=== PATIENT | male | born 1980 | race American Indian/Alaskan Native ===

== ENCOUNTER 2018-05-04 01:52 | Emergency (ER) | payer OTHER ==
--- NOTE | 2018-05-04 03:19 | ED PDOC ---
HPI: Allergic Reaction Chief Complaint (Provider): allergic reaction History Per: Patient History/Exam Limitations: no limitations Onset/Duration Of Symptoms: Hrs Current Symptoms Are (Timing): Better Possible Cause: Unknown Associated Symptoms: Swelling Additional Complaint(s): 38 y/o male presents to ED for evaluation of possible allergic reaction x 1 day. Patient states he noticed his tongue was swollen and had difficulty swallowing earlier tonight; was evaluated at [facility] and prescribed Benadryl, Pepcid, and Prednisone as well as doses given in ED with improvement of symptoms. Patient states he feels like once the medications wore off the swelling was coming back. Denies fever, headache, dizziness, difficulty speaking/swallowing, rash, cough, chest pain, shortness of breath, palpitations. Patient reports feeling better now. Patient states he had a Tetanus shot early April, and took one Cipro pill 10 days after that; otherwise denies known allergen <Dorcas Bennett - Last Filed: 05/04/18 03:21> <Constantine Adamson - Last Filed: 05/05/18 03:49> Time Seen by Provider: 05/04/18 02:34 Chief Complaint (Nursing): ENT Problem Supervising Attending Note - Attestation: I have reviewed all pertinent clinical information: Yes <Constantine Adamson - Last Filed: 05/05/18 03:49> Past Medical History Reviewed: Historical Data, Nursing Documentation, Vital Signs Vital Signs: Last Vital Signs Temp 98.6 F 05/04/18 02:00 Pulse 55 L 05/04/18 02:00 Resp 18 05/04/18 02:00 BP 106/69 05/04/18 02:00 Pulse Ox 99 05/04/18 02:00 - Medical History PMH: No Chronic Diseases - Family History Family History: States: No Known Family Hx <Dorcas Bennett - Last Filed: 05/04/18 03:21> Vital Signs: Last Vital Signs Temp 97.9 F 05/04/18 03:40 Pulse 50 L 05/04/18 03:40 Resp 14 05/04/18 03:40 BP 111/72 05/04/18 03:40 Pulse Ox 100 05/04/18 03:40 <Constantine Adamson - Last Filed: 05/05/18 03:49> - Allergies Allergies/Adverse Reactions: Allergies Allergy/AdvReac Type Severity Reaction Status Date / Time Penicillins Allergy RASH Verified 05/04/18 03:16 Review of Systems ROS Statement: Except As Marked, All Systems Reviewed And Found Negative ENT: Positive for: Other (tongue swelling) <Dorcas Bennett - Last Filed: 05/04/18 03:21> Physical Exam - Reviewed Nursing Documentation Reviewed: Yes Vital Signs Reviewed: Yes - Physical Exam Appears: Positive for: Well, Non-toxic, No Acute Distress (sleeping) Head Exam: Positive for: ATRAUMATIC, NORMAL INSPECTION, NORMOCEPHALIC Skin: Positive for: Normal Color Eye Exam: Positive for: Normal appearance ENT: Positive for: Normal ENT Inspection, Other (airway patent; uvula midline. No tongue swelling appreciated). Negative for: Pharyngeal Erythema, Tonsillar Exudate, Tonsillar Swelling Cardiovascular/Chest: Positive for: Regular Rate, Rhythm Respiratory: Positive for: Normal Breath Sounds Gastrointestinal/Abdominal: Positive for: Normal Exam Back: Positive for: Normal Inspection Extremity: Positive for: Normal ROM Neurologic/Psych: Positive for: Alert, Motor/Sensory Deficits (x3) <Dorcas Bennett - Last Filed: 05/04/18 03:21> - ECG O2 Sat by Pulse Oximetry: 99 - Progress ED Course And Treament: Benadryl PO Patient educated on findings, advised to continue medications previously prescribed Follow up PMD 2-3 days Return precautions given <Dorcas Bennett - Last Filed: 05/04/18 03:21> Disposition - Patient ED Disposition Is Patient to be Admitted: No Counseled Patient/Family Regarding: Diagnosis, Need For Followup - Disposition Disposition: Routine/Home Disposition Time: 03:20 <Dorcas Bennett - Last Filed: 05/04/18 03:21> <Constantine Adamson - Last Filed: 05/05/18 03:49> - Clinical Impression Clinical Impression: Tongue swelling - Disposition Condition: GOOD Instructions: Angioedema Forms: [facility] ([place])
[2018-05-04 03:48] VITALS: BP 111/72; PULSE 50; RESP 14; TEMP 97.9; O2SAT 100
== END 2018-05-04 03:49 | disposition home or self-care (01) ==
LOC: H.ER 01:52
DX: R22.0 Localized swelling, mass and lump, head (principal); R13.10 Dysphagia, unspecified

== ENCOUNTER 2018-07-20 03:42 | Emergency (ER) | payer OTHER ==
[2018-07-20] MEDS ORDERED: Sodium Chloride 0.9% 1,000 ML IV STA ×2 (04:05→05:57)
[2018-07-20 04:26] LABS: BASO % 0.7 % (0.0-2.0); EOS # 0.1 K/uL (0.0-0.7); EOS % 1.3 % (0.0-4.0); LYMPH # 2.5 K/uL (1.0-4.3); LYMPH % 48.9 % (20.0-40.0); MEAN CELL VOLUME 87.5 fl (80.0-94.0); MEAN CORPUSCULAR HEMOGLOBIN 29.7 pg (27.0-31.0); MEAN CORPUSCULAR HGB CONC 33.9 g/dL (33.0-37.0); MEAN PLATELET VOLUME 7.1 fl (7.2-11.7); MONO # 0.4 K/uL (0.0-0.8); MONO % 8.9 % (0.0-10.0); NEUT % 40.2 % (50.0-75.0); NRBC % 0.2 % (0.0-0.0); RBC 4.73 Mil/uL (4.40-5.90); RED CELL DISTRIBUTION WIDTH 13.5 % (11.5-14.5)
[2018-07-20 04:46] LABS: BLOOD UREA NITROGEN 21 mg/dl (9-20); CALCIUM 9.2 mg/dL (8.4-10.2); GFR NON-AFRICAN AMERICAN > 60
--- NOTE | 2018-07-20 05:09 | ED PDOC ---
HPI: General Adult Time Seen by Provider: 07/20/18 03:57 Chief Complaint (Nursing): Abdominal Pain History Per: Patient History/Exam Limitations: no limitations Onset/Duration Of Symptoms: Hrs Have you had recent travel within the past 21 days to any of the following countries: [place], [place], [place] or [place]?: No Additional Complaint(s): No PMHx presenting with dizziness and lightheadedness. States that he got up at 230 to use the bathroom and felt like he as going to pass out, states that while walking he felt like he was falling to the left. States that he has had a queasy sensation in his stomach for the past 5 days, has not been sleeping well, and had one loose bowel movement today. No vomiting but has nausea. No fevers, no chest pain, shortness of breath, or other symptoms. PMD: Can't remember name Past Medical History Reviewed: Historical Data, Nursing Documentation, Vital Signs Vital Signs: Last Vital Signs Temp 98.7 F 07/20/18 03:51 Pulse 74 07/20/18 03:51 Resp 16 07/20/18 03:51 BP 124/77 07/20/18 03:51 Pulse Ox 98 07/20/18 03:51 - Medical History PMH: No Chronic Diseases - Family History Family History: States: Unknown Family Hx - Allergies Allergies/Adverse Reactions: Allergies Allergy/AdvReac Type Severity Reaction Status Date / Time Penicillins Allergy RASH Verified 05/04/18 03:16 Review of Systems ROS Statement: Except As Marked, All Systems Reviewed And Found Negative Gastrointestinal: Positive for: Nausea Neurological: Positive for: Weakness, Dizziness. Negative for: Headache Physical Exam - Reviewed Nursing Documentation Reviewed: Yes Vital Signs Reviewed: Yes - Physical Exam Appears: Positive for: Well, Non-toxic, No Acute Distress Head Exam: Positive for: ATRAUMATIC, NORMAL INSPECTION, NORMOCEPHALIC Skin: Positive for: Normal Color, Warm, DRY Eye Exam: Positive for: EOMI, Normal appearance, PERRL ENT: Positive for: Normal ENT Inspection Neck: Positive for: Normal, Painless ROM Cardiovascular/Chest: Positive for: Regular Rate, Rhythm Respiratory: Positive for: CNT, Normal Breath Sounds Gastrointestinal/Abdominal: Positive for: Normal Exam, Soft. 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 Negative for: Motor/Sensory Deficits - Laboratory Results Result Diagrams: 07/20/18 04:22 07/20/18 04:22 - ECG O2 Sat by Pulse Oximetry: 98 Pulse Ox Interpretation: Normal Medical Decision Making Medical Decision MakinAM Patient presenting with weakness, dizziness --Well appearing, normal vitals, nonfocal exam --Differential includes but not limited to dehydration, electrolyte imbalance, arrhythmia --Will hydrate, check labs, EKG, and re-eval --Will continue to monitor 645AM --Patient improved --Vitals stable, workup negative --Advised patient to continue hydrating --Advised followup with PMD --Very well appearing upon discharge Disposition - Clinical Impression Clinical Impression: Dehydration, Dizziness - Patient ED Disposition Is Patient to be Admitted: No - Disposition Referrals: [facility] [Outside] Disposition: Routine/Home Disposition Time: 06:49 Condition: IMPROVED Instructions: Dehydration, Adult (DC), Dizziness, Nonvertigo, (DC) Forms: [employer] ([place]wegian)
--- NOTE | 2018-07-20 06:38 | CARD ---
APPROVED REPORT Date of service: 07/20/2018 EKG Measurement Heart [id number] <Conclusion> Sinus bradycardia Early repolarization Otherwise normal ECG
[2018-07-20 07:00] VITALS: BP 131/69; PULSE 58; RESP 14; TEMP 98; O2SAT 100
== END 2018-07-20 06:59 | disposition home or self-care (01) ==
LOC: H.ER 03:42
DX: R42 Dizziness and giddiness (principal); E86.0 Dehydration
CPT/HCPCS: 80048; 82948; 85025; 93005; 96361; 96374; 96375; 99284; J1885; J2405; J7030

== ENCOUNTER 2018-09-04 04:18 | Emergency (ER) | payer MEDICAID, OTHER ==
[2018-09-04 04:25] VITALS: BP 115/73; RESP 16; TEMP 98.2; O2SAT 98
[2018-09-04] MEDS ORDERED: Alum-Mag Hydrox-Simethicone Susp (30 mL) PO ONE (04:45)
--- NOTE | 2018-09-04 04:47 | ED PDOC ---
HPI: CCC, URI, Sore Throat Time Seen by Provider: 09/04/18 04:45 Chief Complaint (Nursing): ENT Problem Chief Complaint (Provider): chest pain/sore throat History Per: Patient (38 y/o male here with chest tightness involving sore throat. Denies any cough/fevers/chills. States he has had similar symptoms in past and evaluated multiple times by ED and pmd. Was admitted last year but no stress test. Denies any h/o anxiety.) Past Medical History Reviewed: Historical Data, Nursing Documentation, Vital Signs Vital Signs: Last Vital Signs Temp 98.2 F 09/04/18 04:23 Pulse 79 09/04/18 04:23 Resp 16 09/04/18 04:23 BP 115/73 09/04/18 04:23 Pulse Ox 98 09/04/18 04:23 - Family History Family History: States: Unknown Family Hx - Home Medications Home Medications: Ambulatory Orders Medication Instructions Recorded Ranitidine HCl [Zantac] 150 mg PO DAILY #7 tablet 09/04/18 - Allergies Allergies/Adverse Reactions: Allergies Allergy/AdvReac Type Severity Reaction Status Date / Time Penicillins Allergy RASH Verified 05/04/18 03:16 Review of Systems ROS Statement: Except As Marked, All Systems Reviewed And Found Negative Cardiovascular: Positive for: Chest Pain Physical Exam - Reviewed Nursing Documentation Reviewed: Yes Vital Signs Reviewed: Yes - Physical Exam Appears: Positive for: Well, Non-toxic, No Acute Distress Head Exam: Positive for: ATRAUMATIC, NORMAL INSPECTION, NORMOCEPHALIC Skin: Positive for: Normal Color, Warm, DRY Eye Exam: Positive for: EOMI, Normal appearance, PERRL ENT: Positive for: Normal ENT Inspection Neck: Positive for: Normal, Painless ROM Cardiovascular/Chest: Positive for: Regular Rate, Rhythm Respiratory: Positive for: CNT, Normal Breath Sounds Gastrointestinal/Abdominal: Positive for: Normal Exam, Soft Back: Positive for: Normal Inspection Extremity: Positive for: Normal ROM Neurologic/Psych: Positive for: Alert, Oriented - ECG O2 Sat by Pulse Oximetry: 98 - Progress ED Course And Treament: EKG: NSR NO ECTOPY NO ACUTE CHANGES CXR: NAD MAALOX 30 ML PO X 1 DOSE LIDOCAINE VISCOUS 5ML PO X 1 DOSE PEPCID 20 MG IV X 1 DOSE Disposition - Clinical Impression Clinical Impression: Chest pain - Patient ED Disposition Is Patient to be Admitted: Transfer of Care - Disposition Disposition: Transfer of Care Disposition Time: 00:00 Condition: FAIR Prescriptions: Ranitidine HCl [Zantac] 150 mg PO DAILY #7 tablet Patient Signed Over To: Parminder Caraballo Handoff Comments: pending bloodwork
[2018-09-04 04:58] VITALS: PULSE 65
[2018-09-04] MEDS ORDERED: Alum-Mag Hydrox-Simethicone Susp (30 mL) ONE (05:31)
[2018-09-04 06:17] LABS: BASO % 0.5 % (0.0-2.0); EOS # 0.1 K/uL (0.0-0.7); EOS % 1.8 % (0.0-4.0); HEMOGLOBIN 14.5 g/dL (12.0-18.0); LYMPH # 2.9 K/uL (1.0-4.3); LYMPH % 60.2 % (20.0-40.0); MEAN CELL VOLUME 85.9 fl (80.0-94.0); MEAN CORPUSCULAR HEMOGLOBIN 29.8 pg (27.0-31.0); MEAN CORPUSCULAR HGB CONC 34.7 g/dL (33.0-37.0); MEAN PLATELET VOLUME 7.7 fl (7.2-11.7); MONO # 0.4 K/uL (0.0-0.8); MONO % 7.4 % (0.0-10.0); NEUT # 1.5 K/uL (1.8-7.0); NEUT % 30.1 % (50.0-75.0); NRBC % 0.1 % (0.0-0.0); RBC 4.87 Mil/uL (4.40-5.90); RED CELL DISTRIBUTION WIDTH 13.2 % (11.5-14.5); WHITE BLOOD COUNT 4.9 K/uL (4.8-10.8)
[2018-09-04 06:21] LABS: ALB/GLOB RATIO 1.3 (1.0-2.1); ALBUMIN 4.1 g/dL (3.5-5.0); ALT/SGPT 46 U/L (21-72); AST/SGOT 39 U/L (17-59); BLOOD UREA NITROGEN 21 mg/dl (9-20); CALCIUM 9.2 mg/dL (8.4-10.2); GFR NON-AFRICAN AMERICAN > 60
--- NOTE | 2018-09-04 06:38 | ED PDOC ---
- Laboratory Results Result Diagrams: 09/04/18 05:28 09/04/18 05:28 Lab Results: Troponin I < 0.0120 ng/mL (0.00-0.120) 09/04/18 05:28 Total Bilirubin 0.5 mg/dl (0.2-1.3) 09/04/18 05:28 AST 39 U/L (17-59) 09/04/18 05:28 ALT 46 U/L (21-72) 09/04/18 05:28 Alkaline Phosphatase 63 U/L (38-126) 09/04/18 05:28 Total Protein 7.3 G/DL (6.3-8.2) 09/04/18 05:28 Albumin 4.1 g/dL (3.5-5.0) 09/04/18 05:28 Globulin 3.2 gm/dL (2.2-3.9) 09/04/18 05:28 Albumin/Globulin Ratio 1.3 (1.0-2.1) 09/04/18 05:28 - ECG O2 Sat by Pulse Oximetry: 98 (RA) Pulse Ox Interpretation: Normal Medical Decision Making Medical Decision Making: Time: 0600 -- Patient endorsed to me by Constance Hdez PA-C., pending bloodwork. Time: 0700 -- Labs reviewed and demonstrate no clinically significant abnormalities. Patient is stable for discharge with a diagnosis of atypical chest pain. Scribe Attestation: Documented by Dev Andrews, acting as a scribe for Parminder Caraballo MD. Provider Scribe Attestation: All medical record entries made by the Scribe were at my direction and personally dictated by me. I have reviewed the chart and agree that the record accurately reflects my personal performance of the history, physical exam, medical decision making, and the department course for this patient. I have also personally directed, reviewed, and agree with the discharge instructions and disposition. Disposition Counseled Patient/Family Regarding: Studies Performed, Diagnosis, Rx Given - Clinical Impression Clinical Impression: Chest pain - POA Present On Arrival: None - Disposition Disposition: Routine/Home Disposition Time: 06:33 Condition: STABLE Prescriptions: Ranitidine HCl [Zantac] 150 mg PO DAILY #7 tablet Instructions: Chest Pain That Is Not Caused by the Heart (DC) Forms: [facility] ([place])
--- NOTE | 2018-09-04 09:27 | RAD ---
HISTORY: cp COMPARISON: None available. TECHNIQUE: Chest, one view. FINDINGS: LUNGS: No focal consolidation. Please note that chest x-ray has limited sensitivity for the detection of pulmonary masses. PLEURA: No significant pleural effusion identified. No definite pneumothorax . CARDIOVASCULAR: The cardiomediastinal silhouette appears within normal limits of size. No significant atherosclerotic calcification present. OSSEOUS STRUCTURES: No acute osseous abnormality identified. VISUALIZED UPPER ABDOMEN: Unremarkable. OTHER FINDINGS: None. IMPRESSION: No focal consolidation.
--- NOTE | 2018-09-04 16:44 | CARD ---
APPROVED REPORT Date of service: 09/04/2018 EKG Measurement Heart [id number] <Conclusion> Normal sinus rhythm Normal ECG
== END 2018-09-04 07:09 | disposition home or self-care (01) ==
LOC: H.ER 04:18
DX: R07.89 Other chest pain (principal); Z88.0 Allergy status to penicillin

== ENCOUNTER 2018-12-09 10:25 | Emergency (ER) | payer OTHER ==
[2018-12-09 10:37] VITALS: BP 109/74; PULSE 74; RESP 20; TEMP 97.6; O2SAT 98; BMI 26.4
--- NOTE | 2018-12-09 11:57 | ED PDOC ---
HPI: General Adult Time Seen by Provider: 12/09/18 11:52 Additional Complaint(s): 38 y/o M with NO PMHx presents to ED complaining of lower back pain that began 4 days ago. Pain is described as sharp, 8/10 intensity, constant and radiates to b/l upper posterior thigh. Pt works in [employer], has been lifting up 100 lbs m aterials over the past few days. No recent trauma. Pt has tried PO Naproxen yesterday with mild improvement. No fever, chills, chest pain, SOB, paresthesias, urinary issues, change in bowel movement. PMD: Dr Morales Allergies: Penicillins Meds: none PMHx: denied PSHx: L knee surgery FHx: denied. SHx: Ocasional alcohol. NO rec drugs and no alcohol. Past Medical History Vital Signs: Last Vital Signs Temp 97.6 F 12/09/18 10:37 Pulse 74 12/09/18 10:37 Resp 20 12/09/18 10:37 BP 109/74 12/09/18 10:37 Pulse Ox 98 12/09/18 10:37 - Family History Family History: States: Unknown Family Hx - Home Medications Home Medications: Ambulatory Orders Medication Instructions Recorded Ranitidine HCl [Zantac] 150 mg PO DAILY #7 tablet 09/04/18 Cyclobenzaprine [Cyclobenzaprine 10 mg PO HS #10 tab 12/09/18 HCl] Lidocaine 5% [Lidoderm] 1 ea TD DAILY #10 patch 12/09/18 Naproxen 500 mg PO Q12H 15 Days #30 tab 12/09/18 - Allergies Allergies/Adverse Reactions: Allergies Allergy/AdvReac Type Severity Reaction Status Date / Time Penicillins Allergy RASH Verified 05/04/18 03:16 Review of Systems Constitutional: Negative for: Fever, Chills Eyes: Negative for: Pain ENT: Negative for: Ear Pain, Ear Discharge Cardiovascular: Negative for: Chest Pain, Palpitations Respiratory: Negative for: Cough, Shortness of Breath Gastrointestinal: Negative for: Nausea, Vomiting, Abdominal Pain Genitourinary Male: Negative for: Dysuria, Frequency Musculoskeletal: Positive for: Back Pain. Negative for: Neck Pain, Shoulder Pain, Foot Pain Skin: Negative for: Rash Neurological: Negative for: Weakness, Numbness, Incoordination Psych: Negative for: Anxiety, Depression Physical Exam - Physical Exam Head Exam: Positive for: ATRAUMATIC, NORMAL INSPECTION Skin: Positive for: Normal Color, Warm Eye Exam: Positive for: Normal appearance Neck: Positive for: Normal, Painless ROM, Supple Cardiovascular/Chest: Positive for: Regular Rate, Rhythm Respiratory: Positive for: Normal Breath Sounds Gastrointestinal/Abdominal: Positive for: Soft. Negative for: Tenderness, Dis tended, Guarding Back: Positive for: Decreased ROM, Other (Tendernes over lumbo-sacral spine, bilateral lower back tenderness. ) Neurological/Psych: Positive for: Awake, Alert - ECG O2 Sat by Pulse Oximetry: 98 Medical Decision Making Medical Decision Makin:45 --IM Toradol and PO Flexeril ordered. --Will re-evaluate. 13:30 --Pain improved. --Pt stable, will discharge him home with Rx for Naproxen,Flexeril and Lidoderm. --Pt instructed to follow conservative management local warm compresses and avoidance of heavy lifting for 1 week. --Letter for work given to patient. Disposition - Clinical Impression Clinical Impression: Acute back pain - Patient ED Disposition Is Patient to be Admitted: No - Disposition Referrals: Ozzie Gonzalez MD [Primary Care Provider] - Disposition: Routine/Home Disposition Time: 15:00 Condition: FAIR Prescriptions: Cyclobenzaprine [Cyclobenzaprine HCl] 10 mg PO HS #10 tab Lidocaine 5% [Lidoderm] 1 ea TD DAILY #10 patch Naproxen 500 mg PO Q12H 15 Days #30 tab Instructions: Low Back Pain in Adults, Low Back Pain (DC) Forms: [employer] (Sinhala), [facility] ED School/Work Excuse
== END 2018-12-09 15:12 | disposition home or self-care (01) ==
LOC: H.ER 10:25 → SUPCPDRO 10:25 → H.ER 15:12
DX: M54.5 Low back pain (principal)
CPT/HCPCS: 96372; 99283; J1885